=== PATIENT | female | born 1980 | race Caucasian/White ===

== ENCOUNTER 2023-12-10 13:55 | Emergency (ER) | payer OTHER, SELFPAY ==
--- NOTE | ~2023-12-10 | XR_ITS ---
EXAMINATION: XR wrist LT min 3V DATE: 12/10/2023 17:18 INDICATION: Diffuse left wrist pain post fall TECHNIQUE: Posteroanterior, ulnar deviation, oblique, and lateral views of the left wrist were obtain ed. COMPARISON: none FINDINGS: 2 mm ulnar positive variance. Alignment is otherwise normal. No fracture. Joint spaces are normal. Mi ld soft tissue swelling about the ulnar aspect of the wrist. IMPRESSION: 1. No acute osseous abnormality. Reviewed, dictated and finalized at location A.
--- NOTE | ~2023-12-10 | XR_ITS ---
EXAMINATION: XR ankle RT min 3V, XR foot RT min 3V DATE: 12/10/2023 17:19 INDICATION: Right foot and ankle pain and bruising post fall TECHNIQUE: 1. Anteroposterior, mortise, additional oblique and lateral view of the right ankle were obtained. 2. Dorsoplantar, two oblique and lateral views of the right foot were obtained. COMPARISON: None. FINDINGS: Alignment of the right foot and ankle is normal. No fracture. Joint spaces are well maintained. No an kle joint effusion. The soft tissues are unremarkable. IMPRESSION: 1. Negative right foot and ankle radiographs. Reviewed, dictated and finalized at location A. IMPRESSION: 1. Negative right foot and ankle radiographs.
--- NOTE | ~2023-12-10 | CT_ITS ---
EXAMINATION: CT brain wo con DATE: 12/10/2023 17:01 INDICATION: Generalized headache and subjective slurred speech fall down steps TECHNIQUE: Computed tomography (CT) of the head was performed without intravenous contrast. Sagittal and coronal reconstructions were performed. The mA was adjusted according to patient size. Iterative reconstruction technique was employed. The dose-length product was 529.67 mGy-cm. COMPARISON: None FINDINGS: No fracture. No acute intracranial hemorrhage, acute infarction or abnormal extra axial fluid collect ion. Ventricles are normal and symmetric. No mass/mass effect. The orbits, paranasal sinuses and mast oid air cells are normal. IMPRESSION: 1. Normal head CT. Reviewed, dictated and finalized at location A. IMPRESSION: 1. Normal head CT.
[2023-12-10 14:20] VITALS: BP 127/77; PULSE 83; RESP 16; TEMP 36.7; O2SAT 96
--- NOTE | 2023-12-10 16:20 | ED.FALL ---
HPI - Fall General Chief Complaint: Fall Stated Complaint: left wrist pain and right foot pain Time Seen by Provider: 12/10/23 15:56 Source: patient Mode of arrival: ambulatory Limitations: no limitations History of Present Illness HPI Narrative: 43-year-old female with a history of CAD 1 year ago, seizures on Keppra, Lamictal clonazepam p.r.n. fell down a flight of 16 steps while attempting to separate her dogs from fighting. No loss of consciousness. The patient presents with -- altered speech. The patient feels that she has impending seizures. No other focal neuro deficit. No head injury. -- Left wrist pain with abrasion. decreased range of motion -- left elbow abrasion -- right foot /right ankle pain with bruising and if decreased range of motion -- right knee abrasion the patient was ambulatory after the fall. complaint: fall ( fell down a flight of stairs with 16 steps.) Onset (ago): hour(s) ( 1 hour ago) Fall from: standing Fall witnessed: yes, by family Place fall occurred: home Loss of consciousness: none Prolonged down time: no Symptoms prior to fall: none Context: tripped/slipped Location of injury - extremities: Left: elbow and Right: knee, ankle and foot Associated symptoms (after fall): denies and other ( Slurred speech) Related Data Home Medications Medication Instructions Recorded Confirmed clonazepam 0.5 mg disintegrating 0.5 mg PO BID PRN Seizure Activity 12/10/23 12/10/23 tablet esomeprazole magnesium 40 mg 40 mg PO DAILY 12/10/23 12/10/23 capsule,delayed release (Nexium) estradiol 0.05 mg/24 hr semiweekly See Rx Instructions .Route .COMPLEX 12/10/23 12/10/23 transdermal patch (Lyllana) famotidine 40 mg tablet 40 mg PO DAILY 12/10/23 12/10/23 gabapentin 800 mg tablet 800 mg PO TID 12/10/23 12/10/23 lamotrigine 200 mg tablet 400 mg PO BID 12/10/23 12/10/23 levetiracetam 500 mg tablet 500 mg PO BID 12/10/23 12/10/23 methocarbamol 500 mg tablet 500 mg PO BID 12/10/23 12/10/23 omeprazole 40 mg capsule,delayed 40 mg PO DAILY 12/10/23 12/10/23 release ondansetron 8 mg disintegrating 8 mg PO Q8H PRN Nausea 12/10/23 12/10/23 tablet propranolol 10 mg tablet 10 mg PO DAILY 12/10/23 12/10/23 quetiapine 300 mg tablet 300 mg PO HS 12/10/23 12/10/23 tramadol 50 mg tablet 50 mg PO TID 12/10/23 12/10/23 Allergies Allergy/AdvReac Type Severity Reaction Status Date / Time amoxicillin Allergy Rash Verified 12/10/23 16:32 baclofen Allergy Muscle Verified 12/10/23 16:32 Spasms Penicillins Allergy Rash Verified 12/10/23 16:32 Review of Systems Review of Systems: All systems reviewed & are unremarkable except as noted in HPI and below Constitutional: Constitutional: Reports as per HPI and Reports no additional constitutional complaints Eyes: Eyes: Reports as per HPI and Reports no additional eye complaints ENT: Reports system reviewed and no additional complaints, except as documented and Reports as per HPI Cardiovascular: Cardiovascular: Reports as per HPI and Reports no additional cardiovascular complaints Respiratory: Respiratory: Reports as per HPI and Reports no additional respiratory complaints Gastrointestinal: Gastrointestinal: Reports as per HPI and Reports no additional gastrointestinal complaints Genitourinary: Genitourinary: Reports no additional female genitourinary complaints and Reports as per HPI Musculoskeletal: Comments: left wrist, left elbow, right knee, right foot/ ankle pain Integumentary/Breasts: Comments: multiple abrasions on the left elbow, left wrist, right knee, right foot / ankle Neurologic: Reports system reviewed and no additional complaints, except as documented and Reports as per HPI Psychiatric: Psychiatric: Reports no additional psychiatric complaints and Reports as per HPI Endocrine: Endocrine: Reports no additional endocrine complaints and Reports as per HPI Hematologic/Lymphatic: Hematologic/Lymphatic: Reports no additional
[2023-12-10 16:35] VITALS: BP 142/94; PULSE 63; RESP 16; O2SAT 96
[2023-12-10] MEDS: KETOROLAC 30 MG/ML VIAL (*BKC) IM (16:46)
[2023-12-10] MEDS: Please add drug allergy info to patient profile. 1 EACH XX (16:47)
[2023-12-10] MEDS: HYDROcodone/acetaminophen (*CRX) 5-325 MG TABLET 1 TAB PO (17:59)
== END 2023-12-10 18:07 | disposition home or self-care (01) ==
PROVIDERS: Emergency Provider Internal Medicine Critical Care Medicine
DX: S50.312A Abrasion of left elbow, initial encounter (principal); S60.812A Abrasion of left wrist, initial encounter; S90.511A Abrasion, right ankle, initial encounter; S80.211A Abrasion, right knee, initial encounter; I25.10 Atherosclerotic heart disease of native coronary artery without angina pectoris; Z79.899 Other long term (current) drug therapy; Z79.891 Long term (current) use of opiate analgesic; W10.9XXA Fall (on) (from) unspecified stairs and steps, initial encounter
CPT/HCPCS: 70450; 73110; 73610; 73630; 96372; 99284; A9270; J1885

== ENCOUNTER 2023-12-31 20:12 | Emergency (ER) | payer OTHER, SELFPAY ==
[2023-12-31] VITALS (13 sets, daily range): BP systolic 111–139; BP diastolic 69–91; PULSE 63–81; RESP 10–24; TEMP 36.4; O2SAT 91–99
--- NOTE | ~2023-12-31 | CT_ITS ---
EXAMINATION: CTA chest PE abdomen pel DATE: 12/31/2023 21:54 INDICATION: Chest pain TECHNIQUE: Computed tomography (CT) pulmonary angiogram of the chest was performed with 100 mL Omnipa que-350 intravenous contrast. Additional 3D reconstructions utilizing coronal maximum intensity proje ction (MIP) were performed. CT of the abdomen and pelvis was performed with intravenous contrast util izing the same contrast bolus following a short delay. The dose-length product was 207.26 mGy-cm. COMPARISON: None FINDINGS: Chest: No pulmonary embolism. Minimal dependent atelectasis in bilateral lower lobes. No pneumonia, pulmonar y edema or pleural effusion. Heart size is normal. No pericardial effusion. Thoracic aorta is normal in caliber with no dissection. Mild upper thoracic dextrocurvature and mild lower thoracic levocurvat ure with mild spondylosis. Abdomen/pelvis: Liver, gallbladder, spleen, pancreas, bilateral adrenal glands and kidneys are normal. Bowels includi ng the appendix are normal. Bladder is normal. Uterus and left ovary are not visualized and likely way rgically absent. Couple subcentimeter follicles at the right ovary. No free intraperitoneal gas or fl uid. No pathologically enlarged abdominal or pelvic lymphadenopathy. Mild lumbar levocurvature. IMPRESSION: 1. No pulmonary embolism or other acute cardiopulmonary disease. 2. No acute intra-abdominal/pelvic process. Reviewed, dictated and finalized at location A.
--- NOTE | ~2023-12-31 | XR_ITS ---
EXAMINATION: XR chest 1V portable DATE: 12/31/2023 20:47 INDICATION: Seizure TECHNIQUE: frontal view of the chest was obtained. COMPARISON: None FINDINGS: The lungs are clear with no focal airspace opacities, pulmonary edema, pleural effusion or pneumothor ax. The cardiomediastinal silhouette is normal. Crescentic lucency underlying the left hemidiaphragm. IMPRESSION: 1. No acute cardiopulmonary disease. Line 2. Crescentic lucency underlying the left hemidiaphragm which could represent either gas in the stoma ch or less likely free intraperitoneal gas. Correlate with the scheduled CT. Reviewed, dictated and finalized at location A. IMPRESSION: 1. No acute cardiopulmonary disease. Line 2. Crescentic lucency underlying the left hemidiaphragm which could represent e ither gas in the stomach or less likely free intraperitoneal gas. Correlate wit h the scheduled CT.
--- NOTE | 2023-12-31 20:32 | ECG_ITS ---
Test Date: 2023-12-31 20:20:50 Measurements Intervals [place] Rate: 76 P: 47 CA: 136 QRS: 36 QRSD: 94 T: 64 QT: 371 QTc: 417 Interpretive Statements SINUS RHYTHM DELAYED PRECORDIAL R/S TRANSITION BORDERLINE ST-T WAVE ABNORMALITY- DIFFUSE LEADS BORDERLINE ECG No previous ECG available for comparison Electronically Signed On 01-01-2024 06:21:43 CDT by Kolby Lemus D.O.
--- NOTE | 2023-12-31 20:32 | ED.GENADULT ---
HPI - General Adult General Chief complaint: Seizure Stated complaint: chest pain/ abdominal pain Time Seen by Provider: 12/31/23 20:31 Source: patient and family History of Present Illness HPI narrative: 43 YEARS OLD WHITE FEMALE CAME TO THE ED BY PRIVATE COMPLAINING OF HAVING SEIZURE WHILE SLEEPING WAKING UP WITH POSSIBLE POSTICTAL AND URINATING IN BED. FEW HOURS PRIOR TO ARRIVAL LAST SEIZURE WAS 2 MONTHS AGO, IN BETWEEN UROLOGIST AT THIS TIME, CURRENTLY ON LAMICTAL, KEPPRA AND CLONAZEPAM. PATIENT IS TELLING ME THAT SHE HAD 1 TABLET OF CLONAZEPAM FEW HOURS AGO BECAUSE SHE WAS FEELING THAT SHE IS GOING TO HAVE A SEIZURE. PATIENT IS TELLING ME THAT SHE HAVE HISTORY OF CHRONIC ABDOMINAL PAIN FOR YEARS AND WAS TOLD THAT MOST OF THE WORKUP NEGATIVE AND MAY BE SHE HAD CROHN'S. HER COLD ROLLING COORDINATOR AT FOR FEW HEIGHT. PATIENT REPORTS THAT HER ABDOMINAL PAIN HAS BEEN CONSTANT AND GETTING WORSE. PATIENT ALSO COMPLAINING CHEST PAIN, ACHING ACROSS THE CHEST STARTED DAYS AGO . SHE IS TELLING ME THAT SHE HAD HISTORY OF VT, NO CORONARY STENTS. PATIENT WAS SEEN BY PSYCHIATRIST 2 WEEKS AGO, BY HER OBGYN 1 WEEK AGO. PATIENT IS TELLING ME THAT SHE BEEN HAVING THE ABOVE SYMPTOMS FOR AT LEAST 5 YEARS AND BEEN TO DIFFERENT DOCTORS DIFFERENT EMERGENCY ROOM WITHOUT ANY SPECIFIC DIAGNOSIS. Related Data Home Medications Medication Instructions Recorded Confirmed clonazepam 0.5 mg disintegrating 0.5 mg PO BID PRN Seizure Activity 12/10/23 12/10/23 tablet esomeprazole magnesium 40 mg 40 mg PO DAILY 12/10/23 12/31/23 capsule,delayed release (Nexium) estradiol 0.05 mg/24 hr semiweekly See Rx Instructions .Route .COMPLEX 12/10/23 12/10/23 transdermal patch (Lyllana) famotidine 40 mg tablet 40 mg PO DAILY 12/10/23 12/31/23 gabapentin 800 mg tablet 800 mg PO TID 12/10/23 12/31/23 lamotrigine 200 mg tablet 400 mg PO BID 12/10/23 12/31/23 levetiracetam 500 mg tablet 500 mg PO BID 12/10/23 12/31/23 methocarbamol 500 mg tablet 500 mg PO BID 12/10/23 12/31/23 omeprazole 40 mg capsule,delayed 40 mg PO DAILY 12/10/23 12/31/23 release ondansetron 8 mg disintegrating 8 mg PO Q8H PRN Nausea 12/10/23 12/31/23 tablet propranolol 10 mg tablet 10 mg PO DAILY 12/10/23 12/31/23 quetiapine 300 mg tablet 300 mg PO HS 12/10/23 12/31/23 tramadol 50 mg tablet 50 mg PO TID 12/10/23 12/31/23 Allergies Allergy/AdvReac Type Severity Reaction Status Date / Time amoxicillin Allergy Rash Verified 12/31/23 20:23 baclofen Allergy Muscle Verified 12/31/23 20:23 Spasms Penicillins Allergy Rash Verified 12/31/23 20:23 Review of Systems Review of Systems: All systems reviewed & are unremarkable except as noted in HPI and below PMFSH Past Medical History Medical History Seizure Exam Narrative: GENERAL APPEARANCE: WELL-DEVELOPED, WELL-NOURISHED, CRYING, LOOKS IN PAIN AND RESTLESS. SKIN: NORMAL COLOR HEAD: NORMOCEPHALIC, NONTRAUMATIC EYES: CLEAR CONJUNCTIVA ENT: OROPHARYNX NORMAL, EARS NORMAL, NOSE NORMAL NECK: SUPPLE, NONTENDER CHEST AND RESPIRATORY: AIRWAY PATENT, NO RESPIRATORY DISTRESS, NO ACCESSORY MUSCLE USE SEVERE CHEST TENDERNESS WITH LIGHT PALPATION, NO BRUISES, NO SWELLING OR RASH HEART: REGULAR RATE/RHYTHM ABDOMEN: SOFT, SEVERE DIFFUSE TENDERNESS, GENERALIZED, NO ORGANOMEGALY, QUIET BOWEL SOUNDS VASCULAR: NORMAL PERIPHERAL PULSES, NORMAL CAPILLARY REFILL. MUSCULOSKELETAL: NORMAL RANGE OF MOTION, NONTENDER BACK NEUROLOGIC: ALERT AND ORIENTED ?3, PACKAGE COLLECTOR IS NORMAL TESTED, NO GROSS MOTOR DEFICIT Course Vital Signs Vital signs: Vital Signs Pulse Rate 77 12/31/23 20:17 Respiratory Rate 24 H
[2023-12-31 20:53] LABS: Basophils Absolute Auto 0.07 K/mm3 (0.00-0.10); Basophils Percent Auto 0.7 % (0.0-1.0); Eosinophils Absolute Auto 0.29 K/mm3 (0.02-0.50); Eosinophils Percent Auto 2.8 % (1.0-6.0); Hemoglobin 13.6 g/dL (12.0-15.0); Immature Granulocyte Absolute 0.02 K/mm3 (0.00-0.00); Immature Granulocyte Percent A 0.2 % (0.0-0.0); Lymphocytes Absolute Auto 4.13 K/mm3 (1.10-4.50); Lymphocytes Percent Auto 39.5 % (18.0-42.0); Mean Corpuscular Hemoglobin 31.3 pg (27.0-31.0); Mean Corpuscular Volume 92.2 fL (78.0-102.0); Monocytes Absolute Auto 0.68 K/mm3 (0.10-0.90); Monocytes Percent Auto 6.5 % (2.0-11.0); Neutrophils Absolute Auto 5.27 K/mm3 (1.70-7.20); Neutrophils Percent Auto 50.3 % (50.0-70.0); Platelet Count Result 410 K/mm3 (150-420); Red Blood Count 4.34 M/mm3 (4.20-5.40); Red Cell Distribution Width 13.8 % (11.6-14.4); White Blood Count 10.5 K/mm3 (4.8-10.8)
[2023-12-31] MEDS: ONDANSETRON INJ 4 MG/2 ML VIAL IV PUSH (21:02)
[2023-12-31] MEDS: MORPHINE SULFATE (*CRX) 4 MG/ML INJ IV PUSH (21:04)
[2023-12-31] MEDS: levETIRAcetam 1000MG/NACL100ML 1,000 MG/100 ML BAG 400 MG IVPB (21:04)
[2023-12-31 21:09] LABS: INR 0.9; Partial Thromboplastin Time 26.5 Sec (23.9-30.70); Prothrombin Time 9.9 Seconds (9.50-12.1)
[2023-12-31 21:11] LABS: D Dimer 0.53 mg/L (0.19-0.50)
[2023-12-31 21:15] LABS: Add Urine Microscopic? NO; Appearance Urine Clear (Clear); Bilirubin Urine Negative (Negative); Blood Urine Negative (Negative); Color Urine Yellow (Yellow); Glucose Urine UA Negative (Negative); Ketones Urine Negative (Negative); Leukocyte Esterase Ur Negative LEU/UL (Negative); Nitrate Urine Negative (Negative); Protein Urine Negative (Negative); Specific Grav Ur 1.015 (1.010-1.020); Urobilinogen Urine 0.2 mg/dL (0.2-1.0)
[2023-12-31 21:17] LABS: Alanine Aminotransferase 16 U/L (14-59); Albumin Level 3.3 g/dL (3.4-5.0); Alkaline Phosphatase 92 U/L (46-116); Anion Gap 8 mmol/L (4-12); Aspartate Amino Transferase 12 U/L (15-37); Bilirubin,Total 0.2 mg/dL (0.00-1.00); Blood Urea Nitrogen 6 mg/dL (7-18); Carbon Dioxide 28 mmol/L (21-32); Chloride 104 mmol/L (98-108); Estimated CRCL calculation 61 ml/min; Estimated Glomerular Filt Rate 57; Glucose 98 mg/dL (70-99); Lipase 29 U/L (16-77); NT Pro B Type Natriuretic Pept 70 pg/mL (0-125); Osmolality Calculated 287 mOsm/kg (285-295); Potassium 3.5 mmol/L (3.5-5.1); Sodium 140 mmol/L (136-145); Total Protein 6.3 g/dL (6.4-8.2)
[2023-12-31 21:18] LABS: Troponin I < 4.0 ng/L (0.00-60.4)
[2023-12-31 21:25] LABS: Amphetamine Screen Urine Negative (Negative); Barbiturate Screen Urine Negative (Negative); Benzodiazepines Screen Urine Negative (Negative); Cannabinoid Screen Urine Positive (Negative); Cocaine Screen Urine Positive (Negative); Methadone Screen Urine Negative (Negative); Opiate Screen Urine Negative (Negative); Phencyclidine Screen Urine Negative (Negative)
[2023-12-31] MEDS: HYDROmorphone HCL INJ (*CRX) 2 MG/ML VIAL 0.5 MG IV PUSH (21:54)
--- NOTE | 2023-12-31 23:05 | PC.NURSE ---
ACCOMPANIED DR QUIÑONEZ IN TO DISCUSS NEGATIVE CT, CXR, BLOOD WORK AND POSITIVE UDS FOR COCAINE & MARIJUANA. PT BECAME VERY DEFENSIVE AND DENIED USE OF COCAINE AND REQUESTED, ANOTHER PAIN SHOT BEFORE I GO HOME AND DR QUIÑONEZ EXPLAINED THAT PT HAS ALREADY BEEN GIVEN MORPHINE AND DILAUDID AND THAT IT WOULD BE DANGEROUS TO GIVE ADDITIONAL NARCOTICS WITH COCAINE IN HER SYSTEM. PT RECOMMENDED TO F/U W HER PSYCHOLOGIST AND NEUROLOGIST MEE.
== END 2023-12-31 23:05 | disposition home or self-care (01) ==
PROVIDERS: Emergency Provider Emergency Medicine
DX: R10.84 Generalized abdominal pain (principal); G89.29 Other chronic pain; R56.9 Unspecified convulsions; F12.10 Cannabis abuse, uncomplicated; F14.10 Cocaine abuse, uncomplicated; Z79.899 Other long term (current) drug therapy
CPT/HCPCS: 36415; 71045; 71275; 74177; 80053; 80175; 80307; 81003; 83690; 83880; 84484; 85025; 85380; 85610; 85730; 93005; 96365; 96375; 99284; J1170; J1953; J2270; J2405; Q9967

== ENCOUNTER 2024-03-02 14:32 | Emergency (ER) | payer OTHER, SELFPAY ==
--- NOTE | ~2024-03-02 | XR_ITS ---
XR chest 1V portable DATE: 03/02/2024 14:45 INDICATION: Cough and congestion for 4 days TECHNIQUE: Portable upright AP chest on 03/02/2024 at 1442 hours COMPARISON: 12/31/2023 CTA chest abdomen pelvis 12/31/2023 portable AP chest FINDINGS: Normal heart size. No hilar or mediastinal enlargement. No pulmonary infiltrate or consolid ation, pleural effusion or pulmonary vascular congestion or pneumothorax is detected. IMPRESSION: No active cardiopulmonary disease Reviewed, dictated and finalized at location A. IFYING ATTENDANT
[2024-03-02 14:37] VITALS: BP 121/87; PULSE 64; RESP 21; TEMP 35.9; O2SAT 98
--- NOTE | 2024-03-02 14:48 | PC.NURSE ---
covid culture sent to lab
[2024-03-02 14:52] VITALS: O2SAT 98
--- NOTE | 2024-03-02 15:00 | ED.URI ---
HPI - URI/Sore Throat General Chief Complaint: Upper Respiratory Infection Stated Complaint: upper respiratory congestion Source: patient Mode of arrival: ambulatory Limitations: no limitations History of Present Illness HPI Narrative: Patient is a 43-year-old female with a known esophagitis and chronic nausea with sore throat but at this time she has a significant sore throat and coughing up green phlegm. This has been going on for the past week. MD elicited complaint: cough, sore throat and nasal congestion Pertinent past history: other ( Esophagitis) Onset (ago): week(s) (1) Consistency: constant Severity: moderate Pain scale (0-10): 5 Description of mucous: green Able to tolerate fluids by mouth: Yes Exacerbating factors: nothing Relieving factors: nothing Context: other ( new sore throat and cough with green phlegm) Associated symptoms: nasal congestion, sore throat and cough Treatments prior to arrival: none Related Data Home Medications Medication Instructions Recorded Confirmed clonazepam 0.5 mg disintegrating 0.5 mg PO BID PRN Seizure Activity 12/10/23 03/02/24 tablet esomeprazole magnesium 40 mg 40 mg PO DAILY 12/10/23 03/02/24 capsule,delayed release (Nexium) estradiol 0.05 mg/24 hr semiweekly See Rx Instructions .Route .COMPLEX 12/10/23 03/02/24 transdermal patch (Lyllana) famotidine 40 mg tablet 40 mg PO DAILY 12/10/23 03/02/24 gabapentin 800 mg tablet 800 mg PO TID 12/10/23 03/02/24 lamotrigine 200 mg tablet 400 mg PO BID 12/10/23 03/02/24 levetiracetam 500 mg tablet 500 mg PO BID 12/10/23 03/02/24 methocarbamol 500 mg tablet 500 mg PO BID 12/10/23 03/02/24 omeprazole 40 mg capsule,delayed 40 mg PO DAILY 12/10/23 03/02/24 release ondansetron 8 mg disintegrating 8 mg PO Q8H PRN Nausea 12/10/23 03/02/24 tablet propranolol 10 mg tablet 10 mg PO DAILY 12/10/23 03/02/24 quetiapine 300 mg tablet 300 mg PO HS 12/10/23 03/02/24 tramadol 50 mg tablet 50 mg PO TID 12/10/23 03/02/24 Allergies Allergy/AdvReac Type Severity Reaction Status Date / Time amoxicillin Allergy Rash Verified 03/02/24 14:35 baclofen Allergy Muscle Verified 03/02/24 14:35 Spasms Penicillins Allergy Rash Verified 03/02/24 14:35 Review of Systems Review of Systems: All systems reviewed & are unremarkable except as noted in HPI and below Constitutional: Constitutional: Reports no additional constitutional complaints Eyes: Eyes: Reports no additional eye complaints ENT: Reports system reviewed and no additional complaints, except as documented Cardiovascular: Cardiovascular: Reports no additional cardiovascular complaints Respiratory: Respiratory: Reports no additional respiratory complaints Gastrointestinal: Gastrointestinal: Reports no additional gastrointestinal complaints Genitourinary: Genitourinary: Reports no additional female genitourinary complaints Musculoskeletal: Musculoskeletal: Reports no additional musculoskeletal complaints Integumentary/Breasts: Skin/Breast: Reports system reviewed and no additional complaints, except as docu Neurologic: Reports system reviewed and no additional complaints, except as documented Psychiatric: Psychiatric: Reports no additional psychiatric complaints Endocrine: Endocrine: Reports no additional endocrine complaints Hematologic/Lymphatic: Hematologic/Lymphatic: Reports no additional hematologic/lymphatic complaints Allergic/Immunologic: Allergic/Immunologic: Reports no additional allergic/immunologic complaints [facility] Past Medical History Medical History Seizure Exam Const: General: healthy appearing Nutritional Appearance: well nourished Orientation/consciousness: patient oriented x3 HENMT: Head: normal to inspection Ears: external ears normal Face/Nose/Sinus: Normal external nose present Other: red posterior oropharynx without tonsillar hypertrophy or pus Eyes: Conjunctivae: conjunctivae normal Pupils: Equal, round and reactive pupils present EOM: EOMs intact bilaterally Neck: Neck: normal visual inspection Chest: Chest palpation & inspection: normal inspection of the chest Resp: Effort & Inspection: normal respiratory effort and not labored Auscultation: clear to auscultation bilaterally, no crackles, no rales, rhonchi ( bilateral), no wheezes, breath sounds present and diminished lung sounds Cardio: Rate: regular rate Rhythm: regular rhythm Heart sounds: no murmurs GI: Inspection: non-distended GI Palp: Yes Soft to palpation and No Tenderness to palpation present (GI) Auscultation: normal bowel sounds : General: Yes bladder normal to palpation Back/Spine/Pelvis: Back: no CVA tenderness Skin: General skin exam: normal color Rashes: no rashes Wounds: no wounds Neuro: General: patient oriented x3 Cranial nerves: Yes Nystagmus not present Speech: normal speech Extrem: General: normal to inspection Psych: Mental Status: mental status grossly normal Affect: normal affect Attitude: cooperative Course Vital Signs Vital signs: Vital Signs Temperature 35.9 C L 03/02/24 14:37 Pulse Rate 64 03/02/24 14:37 Respiratory Rate 21 H 03/02/24 14:37 Blood Pressure 121/87 03/02/24 14:37 Pulse Oximetry 98 03/02/24 14:37 Oxygen Delivery Room Air 03/02/24 14:37 Temperature 35.9 C L 03/02/24 14:37 Pulse Rate 64 03/02/24 14:37 Respiratory Rate 21 H 03/02/24 14:37 Blood Pressure 121/87 03/02/24 14:37 Pulse Oximetry 98 03/02/24 14:52 Oxygen Delivery Room Air 03/02/24 14:52 MDM - URI/Sore Throat MDM Narrative Medical decision making narrative: patient is a 43-year-old female with a cough and congestion with green phlegm and a sore throat. Will do COVID panel and a chest x-ray. Lab Data Attestation: I reviewed the patient's lab results. Labs: Lab Results 03/02/24 Range/Units 14:37 Influenza A (RT-PCR) Negative (Negative) Influenza B (RT-PCR) Negative (Negative) RSV (RT-PCR) Negative (Negative) SARS-CoV-2 RNA (RT-PCR) Negative (Negative) Group A Strep (PCR) Not detected (Negative) Imaging Data Attestation: I personally reviewed and interpreted this imaging study as follows: Radiologist's impression: Chest x-ray is negative for acute process Discharge Plan Discharge Clinical Impression: Bronchitis Pharyngitis Qualifiers: Pharyngitis/tonsillitis etiology: other specified organisms Qualified Code(s): J02.8 - Acute pharyngitis due to other specified organisms Patient Disposition: Home, Self-Care Condition: Stable Instructions: Antibiotic Form, Pharyngitis (ED), Acute Bronchitis (ED) Prescriptions: New azithromycin 250 mg tablet See Rx Instructions .ROUTE .COMPLEX Qty: 6 0RF Rx Instructions: For 250 mg dose pack: take 500 mg today (day 1), then 250 mg for 4 days (days 2-5) lidocaine HCl [Lidocaine Viscous] 2 % solution 5 ml mucous membrane TID PRN (Reason: pain) Qty: 100 0RF No Action methocarbamol 500 mg tablet 500 mg PO BID lamotrigine 200 mg tablet 400 mg PO BID quetiapine 300 mg tablet 300 mg PO HS levetiracetam 500 mg tablet 500 mg PO BID famotidine 40 mg tablet 40 mg PO DAILY estradiol [Lyllana] 0.05 mg/24 hr patch semiweekly See Rx Instructions .ROUTE .COMPLEX Rx Instructions: 1 PATCH omeprazole 40 mg capsule,delayed release(DR/EC) 40 mg PO DAILY tramadol 50 mg tablet 50 mg PO TID ondansetron 8 mg tablet,disintegrating 8 mg PO Q8H PRN (Reason: Nausea) propranolol 10 mg tablet 10 mg PO DAILY gabapentin 800 mg tablet 800 mg PO TID esomeprazole magnesium [Nexium] 40 mg capsule,delayed release(DR/EC) 40 mg PO DAILY clonazepam 0.5 mg tablet,disintegrating 0.5 mg PO BID PRN (Reason: Seizure Activity) Follow-up/Referrals: UNKNOWN,DOCTOR [Non-Staff] - Time of Disposition: 15:58
[2024-03-02 15:14] LABS: Strep Group A RT-PCR Not Detected (Negative)
[2024-03-02 15:46] LABS: Influenza A QL RT-PCR Negative (Negative); Influenza B QL RT-PCR Negative (Negative); RSV RNA, RT-PCR Negative (Negative); SARS-CoV-2 RNA PCR Negative (Negative)
[2024-03-02] MEDS: LIDOCAINE HCL 2% VISC SOLN 15 ML UDC 5 ML PO (16:04)
[2024-03-02 16:08] VITALS: BP 123/79; PULSE 62; RESP 17; TEMP 36.6; O2SAT 99
== END 2024-03-02 16:08 | disposition home or self-care (01) ==
PROVIDERS: Emergency Provider Emergency Medicine; PCP Internal Medicine Infectious Disease
DX: J40 Bronchitis, not specified as acute or chronic (principal); J02.8 Acute pharyngitis due to other specified organisms; Z79.899 Other long term (current) drug therapy; Z20.822 Contact with and (suspected) exposure to COVID-19
CPT/HCPCS: 71045; 87637; 87651; 99283

== ENCOUNTER 2024-03-05 11:17 | Emergency (ER) | payer OTHER, SELFPAY ==
[2024-03-05 11:18] VITALS: BP 122/70; PULSE 72; RESP 24; TEMP 36.6; O2SAT 97
--- NOTE | 2024-03-05 11:55 | ED.NAVMDI ---
HPI - Nausea/Vomiting/Diarrhea General Chief complaint: Nausea/Vomiting/Diarrhea Stated complaint: throwing up Source: patient Mode of arrival: ambulatory Limitations: no limitations History of Present Illness HPI Narrative: 43-year-old female with a history of seizure disorder, esophagitis was seen in the ED on 03/02 for upper respiratory symptoms. She tested negative for RSV / influenza / COVID and received Zithromax for bronchitis. She presents to the ED with a 1 day history of -- multiple episodes of vomiting. nausea. no diarrhea -- Diffuse abdominal pain no fever or chills -- the patient vomited her Seroquel and feels restless. No hematemesis or melena MD elicited complaint: nausea, vomiting and abdominal pain Onset (ago): day(s) ( 1 day) Associated nausea: Yes Associated abdominal pain: Yes Location of pain: diffuse Pain consistency: constant Quality: aching Exacerbating factors: none Relieving factors: none Associated symptoms: denies other symptoms Related Data Home Medications Medication Instructions Recorded Confirmed clonazepam 0.5 mg disintegrating 0.5 mg PO BID PRN Seizure Activity 12/10/23 03/02/24 tablet esomeprazole magnesium 40 mg 40 mg PO DAILY 12/10/23 03/02/24 capsule,delayed release (Nexium) estradiol 0.05 mg/24 hr semiweekly See Rx Instructions .Route .COMPLEX 12/10/23 03/02/24 transdermal patch (Lyllana) famotidine 40 mg tablet 40 mg PO DAILY 12/10/23 03/02/24 gabapentin 800 mg tablet 800 mg PO TID 12/10/23 03/02/24 lamotrigine 200 mg tablet 400 mg PO BID 12/10/23 03/02/24 levetiracetam 500 mg tablet 500 mg PO BID 12/10/23 03/02/24 methocarbamol 500 mg tablet 500 mg PO BID 12/10/23 03/02/24 omeprazole 40 mg capsule,delayed 40 mg PO DAILY 12/10/23 03/02/24 release ondansetron 8 mg disintegrating 8 mg PO Q8H PRN Nausea 12/10/23 03/02/24 tablet propranolol 10 mg tablet 10 mg PO DAILY 12/10/23 03/02/24 quetiapine 300 mg tablet 300 mg PO HS 09/02/24 11/24/24 tramadol 50 mg tablet 50 mg PO TID 12/10/23 03/02/24 Allergies Allergy/AdvReac Type Severity Reaction Status Date / Time amoxicillin Allergy Rash Verified 03/02/24 14:35 baclofen Allergy Muscle Verified 03/02/24 14:35 Spasms Penicillins Allergy Rash Verified 03/02/24 14:35 Review of Systems Review of Systems: All systems reviewed & are unremarkable except as noted in HPI and below Constitutional: Constitutional: Reports as per HPI and Reports no additional constitutional complaints Eyes: Eyes: Reports as per HPI and Reports no additional eye complaints ENT: Reports system reviewed and no additional complaints, except as documented and Reports as per HPI Cardiovascular: Cardiovascular: Reports as per HPI and Reports no additional cardiovascular complaints Respiratory: Respiratory: Reports as per HPI and Reports no additional respiratory complaints Gastrointestinal: Gastrointestinal: Reports as per HPI, Reports no additional gastrointestinal complaints, Reports abdominal pain, Reports nausea and Reports vomiting Genitourinary: Genitourinary: Reports no additional female genitourinary complaints and Reports as per HPI Musculoskeletal: Musculoskeletal: Reports no additional musculoskeletal complaints and Reports as per HPI Integumentary/Breasts: Skin/Breast: Reports system reviewed and no additional complaints, except as docu and Reports as per HPI Neurologic: Reports system reviewed and no additional complaints, except as documented and Reports as per HPI Psychiatric: Psychiatric: Reports no additional psychiatric complaints and Reports as per HPI Endocrine: Endocrine: Reports no additional endocrine complaints and Reports as per HPI Hematologic/Lymphatic: Hematologic/Lymphatic: Reports no additional hematologic/lymphatic complaints and Reports as per HPI Allergic/Immunologic: Allergic/Immunologic: Reports no additional allergic/immunologic complaints and Reports as per HPI [facility] Past Medical History Medical History Seizure Exam Narrative: Vitals are stable. Afebrile Const: General: ill appearing Orientation/consciousness: patient oriented x3 HENMT: Head: normal to inspection Ears: external ears normal Face/Nose/Sinus: Normal external nose present Face and sinus: normal facial exam Mouth: Yes Normal oral and palatal mucosa present Throat: posterior oropharynx normal Eyes: Conjunctivae: conjunctivae normal Cornea: corneas normal Pupils: Equal, round and reactive pupils present EOM: EOMs intact bilaterally Direct Ophthalmoscopy: no photophobia Neck: Neck: normal visual inspection Chest: Chest palpation & inspection: normal inspection of the chest Resp: Effort & Inspection: normal respiratory effort Auscultation: clear to auscultation bilaterally Cardio: Rate: regular rate Rhythm: regular rhythm GI: Other: diffuse tenderness without any rigidity /rebound. : General: Yes no CVA tenderness Back/Spine/Pelvis: Back: no CVA tenderness Skin: General skin exam: normal color Rashes: no rashes Wounds: no wounds Neuro: General: patient oriented x3, moves all extremities, no meningeal signs, no focal motor deficits and CN's II-XI intact bilaterally Cranial nerves: Yes Nystagmus not present Speech: normal speech Gait exam (Neuro): Normal gait present Extrem: General: normal to inspection and no clubbing, cyanosis or edema Psych: Mental Status: mental status grossly normal Affect: normal affect Attitude: cooperative Course Course Emergency Course: Abdominal pain with vomiting anxiety Vital Signs Vital signs: Vital Signs Oxygen Delivery Room Air 03/05/24 11:17 Temperature 36.4 C 03/05/24 12:00 Pulse Rate 65 03/05/24 13:12 Respiratory Rate 18 03/05/24 13:12 Blood Pressure 124/77 03/05/24 12:00 Pulse Oximetry 97 03/05/24 13:12 Oxygen Delivery Room Air 03/05/24 13:12 MDM - Nausea/Vomiting/Diarrhea MDM Narrative Medical decision making narrative: gastritis anxiety Differential Diagnosis Differential diagnosis: Likely food poisoning Medical Records Attestation: I reviewed the patient's medical records. Lab Data Attestation: I reviewed the patient's lab results. 03/05/24 12:27 03/05/24 12:27 Labs: Lab Results 03/05/24 03/05/24 03/05/24 Range/Units 11:58 11:59 12:09 WBC (4.8-10.8) K/mm3 RBC (4.20-5.40) M/mm3 Hgb (12.0-15.0) g/dL Hct (35.0-49.0) % MCV (78.0-102.0) fL MCH (27.0-31.0) pg MCHC (32-36) g/dL RDW (11.6-14.4) % Plt Count (150-420) K/mm3 MPV (9.2-11.8) fl Immature Gran % (Auto) (0.0-0.0) % Neut % (Auto) (50.0-70.0) % Lymph % (Auto) (18.0-42.0) % Hendricks % (Auto) (2.0-11.0) % Eos % (Auto) (1.0-6.0) % Baso % (Auto) (0.0-1.0) % Lymph # (Auto) (1.10-4.50) K/mm3 Hendricks # (Auto) (0.10-0.90) K/mm3 Eos # (Auto) (0.02-0.50) K/mm3 Baso # (Auto) (0.00-0.10) K/mm3 Abs Immat Gran (auto) (0.00-0.00) K/mm3 Absolute Neuts (auto) (1.70-7.20) K/mm3 Absolute Nucleated RBC (0.00-0.00) K/mm3 Nucleated RBC % (0-0.0) % Sodium (136-145) mmol/L Potassium (3.5-5.1) mmol/L Chloride (98-108) mmol/L Carbon Dioxide (21-32) mmol/L Anion Gap (4-12) mmol/L BUN (7-18) mg/dL Creatinine (0.55-1.02) mg/dL Estim Creat Clear Calc ml/min Estimated GFR (59 - ) Glucose (70-99) mg/dL Calculated Osmolality (285-295) mOsm/kg Lactic Acid (0.4-2.0) mmol/L Calcium (8.5-10.1) mg/dL Total Bilirubin (0.00-1.00) mg/dL AST (15-37) U/L ALT (14-59) U/L Alkaline Phosphatase (46-116) U/L Total Protein (6.4-8.2) g/dL Albumin (3.4-5.0) g/dL Lipase (16-77) U/L Urine Color Sindi A (Yellow) Urine Appearance Sl cloudy A (Clear) Urine pH 6.0 (5.0-8.0) Ur Specific [place] >= 1.030 H (1.010-1.020) Urine Protein 2+ H (Negative) Urine Glucose (UA) Negative (Negative) Urine Ketones 3+ H (Negative) Ur Blood (Man) Negative (Negative) Urine Nitrate Negative (Negative) Urine Bilirubin 2+ H (Negative) Urine Urobilinogen 0.2 (0.2-1.0) mg/dL Leukocyte Esterase Rfl Negative (Negative) MARY/UL Urine RBC None seen (0-2) /hpf Urine WBC None seen (0-3) /hpf Ur Squamous Epith Cells Moderate H (Few) /hpf Urine Bacteria 2+ H (None) /hpf Urine Test Negative Influenza A (RT-PCR) Negative (Negative) Influenza B (RT-PCR) Negative (Negative) RSV (RT-PCR) Negative (Negative) SARS-CoV-2 RNA (RT-PCR) Negative (Negative) Group A Strep (PCR) Not detected (Negative) 03/05/24 Range/Units 12:27 WBC 8.7 (4.8-10.8) K/mm3 RBC 5.03 (4.20-5.40) M/mm3 Hgb 15.8 H (12.0-15.0) g/dL Hct 45.7 (35.0-49.0) % MCV 90.9 (78.0-102.0) fL MCH 31.4 H (27.0-31.0) pg MCHC 34.6 (32-36) g/dL RDW 14.3 (11.6-14.4) % Plt Count 489 H (150-420) K/mm3 MPV 9.3 (9.2-11.8) fl Immature Gran % (Auto) 0.3 H (0.0-0.0) % Neut % (Auto) 75.2 H (50.0-70.0) % Lymph % (Auto) 18.8 (18.0-42.0) % Hendricks % (Auto) 5.3 (2.0-11.0) % Eos % (Auto) 0.2 L (1.0-6.0) % Baso % (Auto) 0.2 (0.0-1.0) % Lymph # (Auto) 1.64 (1.10-4.50) K/mm3 Hendricks # (Auto) 0.46 (0.10-0.90) K/mm3 Eos # (Auto) 0.02 (0.02-0.50) K/mm3 Baso # (Auto) 0.02 (0.00-0.10) K/mm3 Abs Immat Gran (auto) 0.03 H (0.00-0.00) K/mm3 Absolute Neuts (auto) 6.56 (1.70-7.20) K/mm3 Absolute Nucleated RBC 0.00 (0.00-0.00) K/mm3 Nucleated RBC % 0.0 (0-0.0) % Sodium 136 (136-145) mmol/L Potassium 3.8 (3.5-5.1) mmol/L Chloride 101 (98-108) mmol/L Carbon Dioxide 22 (21-32) mmol/L Anion Gap 13 H (4-12) mmol/L BUN 13 (7-18) mg/dL Creatinine 0.87 (0.55-1.02) mg/dL Estim Creat Clear Calc 72 ml/min Estimated GFR > 60 (59 - ) Glucose 113 H (70-99) mg/dL Calculated Osmolality 283 L (285-295) mOsm/kg Lactic Acid 0.7 (0.4-2.0) mmol/L Calcium 9.3 (8.5-10.1) mg/dL Total Bilirubin 0.4 (0.00-1.00) mg/dL AST 12 L (15-37) U/L ALT 27 (14-59) U/L Alkaline Phosphatase 90 (46-116) U/L Total Protein 7.5 (6.4-8.2) g/dL Albumin 4.0 (3.4-5.0) g/dL Lipase 16 (16-77) U/L Urine Color (Yellow) Urine Appearance (Clear) Urine pH (5.0-8.0) Ur Specific [place] (1.010-1.020) Urine Protein (Negative) Urine Glucose (UA) (Negative) Urine Ketones (Negative) Ur Blood (Man) (Negative) Urine Nitrate (Negative) Urine Bilirubin (Negative) Urine Urobilinogen (0.2-1.0) mg/dL Leukocyte Esterase Rfl (Negative) MARY/UL Urine RBC (0-2) /hpf Urine WBC (0-3) /hpf Ur Squamous Epith Cells (Few) /hpf Urine Bacteria (None) /hpf Urine Test Influenza A (RT-PCR) (Negative) Influenza B (RT-PCR) (Negative) RSV (RT-PCR) (Negative) SARS-CoV-2 RNA (RT-PCR) (Negative) Group A Strep (PCR) (Negative) Discharge Plan Discharge Clinical Impression: Anxiety Gastritis Qualifiers: Gastritis type: unspecified gastritis Chronicity: acute Gastritis bleeding: without bleeding Qualified Code(s): K29.00 - Acute gastritis without bleeding Patient Disposition: Home, Self-Care Condition: Stable Instructions: Antibiotic Form, Gastritis (ED) Patient Language: Hungarian Prescriptions: New ondansetron HCl 4 mg tablet 4 mg PO Q8H PRN (Reason: nausea and vomiting) 4 Days Qty: 10 0RF No Action methocarbamol 500 mg tablet 500 mg PO BID lamotrigine 200 mg tablet 400 mg PO BID quetiapine 300 mg tablet 300 mg PO HS levetiracetam 500 mg tablet 500 mg PO BID famotidine 40 mg tablet 40 mg PO DAILY estradiol [Lyllana] 0.05 mg/24 hr patch semiweekly See Rx Instructions .ROUTE .COMPLEX Rx Instructions: 1 PATCH omeprazole 40 mg capsule,delayed release(DR/EC) 40 mg PO DAILY tramadol 50 mg tablet 50 mg PO TID ondansetron 8 mg tablet,disintegrating 8 mg PO Q8H PRN (Reason: Nausea) propranolol 10 mg tablet 10 mg PO DAILY gabapentin 800 mg tablet 800 mg PO TID esomeprazole magnesium [Nexium] 40 mg capsule,delayed release(DR/EC) 40 mg PO DAILY clonazepam 0.5 mg tablet,disintegrating 0.5 mg PO BID PRN (Reason: Seizure Activity) azithromycin 250 mg tablet See Rx Instructions .ROUTE .COMPLEX Qty: 6 0RF Rx Instructions: For 250 mg dose pack: take 500 mg today (day 1), then 250 mg for 4 days (days 2-5) lidocaine HCl [Lidocaine Viscous] 2 % solution 5 ml mucous membrane TID PRN (Reason: pain) Qty: 100 0RF Follow-up/Referrals: Jenny Canela APRN [Primary Care Provider] - Time of Disposition: 13:57
[2024-03-05 12:00] VITALS: BP 124/77; PULSE 60; RESP 18; TEMP 36.4; O2SAT 93
[2024-03-05 12:10] LABS: Bilirubin Urine 2+ (Negative); Blood Urine Negative (Negative); Glucose Urine UA Negative (Negative); Ketones Urine 3+ (Negative); Leukocyte Esterase Ur Negative LEU/UL (Negative); Nitrate Urine Negative (Negative); Protein Urine 2+ (Negative); Specific Grav Ur >= 1.030 (1.010-1.020); Urobilinogen Urine 0.2 mg/dL (0.2-1.0)
--- NOTE | 2024-03-05 12:10 | PC.NURSE ---
covid culture sent with strep culture and urine sample
[2024-03-05 12:20] LABS: Add Urine Microscopic? YES; Appearance Urine Sl Cloudy (Clear); Bacteria Urine 2+ /hpf; Color Urine Amber (Yellow); RBC Urine None seen /hpf (0-2); Squamous Epithelial Cell Urine Moderate /hpf (Few); WBC Urine None seen /hpf (0-3)
[2024-03-05 12:27] LABS: Pregnancy On Board Control Positive; Urine Pregnancy Test Negative
[2024-03-05] MEDS: HALOPERIDOL LACTATE 5 MG/ML VIAL IM (12:30)
[2024-03-05] MEDS: ONDANSETRON HCL ODT 4 MG TABLET PO (12:30)
[2024-03-05 12:34] LABS: SARS-CoV-2 RNA PCR Negative (Negative)
[2024-03-05 12:34] LABS: Basophils Absolute Auto 0.02 K/mm3 (0.00-0.10); Basophils Percent Auto 0.2 % (0.0-1.0); Eosinophils Absolute Auto 0.02 K/mm3 (0.02-0.50); Eosinophils Percent Auto 0.2 % (1.0-6.0); Hematocrit 45.7 % (35.0-49.0); Hemoglobin 15.8 g/dL (12.0-15.0); Immature Granulocyte Absolute 0.03 K/mm3 (0.00-0.00); Immature Granulocyte Percent A 0.3 % (0.0-0.0); Lymphocytes Absolute Auto 1.64 K/mm3 (1.10-4.50); Lymphocytes Percent Auto 18.8 % (18.0-42.0); Mean Corpuscular HGB Conc 34.6 g/dL (32-36); Mean Corpuscular Hemoglobin 31.4 pg (27.0-31.0); Mean Corpuscular Volume 90.9 fL (78.0-102.0); Mean Platelet Volume 9.3 fl (9.2-11.8); Monocytes Absolute Auto 0.46 K/mm3 (0.10-0.90); Monocytes Percent Auto 5.3 % (2.0-11.0); Neutrophils Absolute Auto 6.56 K/mm3 (1.70-7.20); Neutrophils Percent Auto 75.2 % (50.0-70.0); Platelet Count Result 489 K/mm3 (150-420); Red Blood Count 5.03 M/mm3 (4.20-5.40); Red Cell Distribution Width 14.3 % (11.6-14.4); White Blood Count 8.7 K/mm3 (4.8-10.8)
[2024-03-05 12:36] LABS: Influenza A QL RT-PCR Negative (Negative); Influenza B QL RT-PCR Negative (Negative); RSV RNA, RT-PCR Negative (Negative)
[2024-03-05 12:53] LABS: Alanine Aminotransferase 27 U/L (14-59); Alkaline Phosphatase 90 U/L (46-116); Anion Gap 13 mmol/L (4-12); Aspartate Amino Transferase 12 U/L (15-37); Bilirubin,Total 0.4 mg/dL (0.00-1.00); Blood Urea Nitrogen 13 mg/dL (7-18); Calcium 9.3 mg/dL (8.5-10.1); Carbon Dioxide 22 mmol/L (21-32); Chloride 101 mmol/L (98-108); Estimated CRCL calculation 72 ml/min; Estimated Glomerular Filt Rate > 60; Glucose 113 mg/dL (70-99); Lipase 16 U/L (16-77); Osmolality Calculated 283 mOsm/kg (285-295); Potassium 3.8 mmol/L (3.5-5.1); Sodium 136 mmol/L (136-145); Total Protein 7.5 g/dL (6.4-8.2)
[2024-03-05] MEDS: LACTATED RINGERS 1,000 ML 999 ML IV CONT (12:57)
[2024-03-05 13:04] LABS: Strep Group A RT-PCR NOT DETECTED (Negative)
[2024-03-05 13:08] LABS: Lactic Acid Reflex 0.7 mmol/L (0.4-2.0)
[2024-03-05 13:12] VITALS: PULSE 65; RESP 18; O2SAT 97
[2024-03-05 14:12] VITALS: BP 138/74; PULSE 64; RESP 18; TEMP 36.9; O2SAT 97
== END 2024-03-05 14:12 | disposition home or self-care (01) ==
PROVIDERS: Emergency Provider Internal Medicine Critical Care Medicine; PCP Nurse Practitioner Family
DX: F41.9 Anxiety disorder, unspecified (principal); K29.00 Acute gastritis without bleeding; Z20.822 Contact with and (suspected) exposure to COVID-19
CPT/HCPCS: 36415; 80053; 81001; 81025; 83605; 83690; 85025; 87637; 87651; 96360; 96372; 99283; A9270; J1630; J7120